=== PATIENT | female | born 1945 | race Caucasian/White ===

== ENCOUNTER 2019-01-02 09:55 | Outpatient (CLI) | payer MEDICARE ==
[2019-01-02 11:29] LABS: #Eosinphils 0.1 thou/uL (0.0-0.7); #Lymphocytes 2.7 thou/uL (1.20-3.40); #Monocytes 0.6 thou/uL (0.11-0.59); #Neutrophils 5.3 thou/uL (1.40-6.50); %Basophils 0.4 % (0.0-1.0); %Eosinophils 1.6 % (0.0-10.0); %Lymphocytes 30.6 % (21.0-51.0); %Monocytes 6.6 % (0.0-10.0); %Neutrophils 60.7 % (42.0-75.0); Hemoglobin 13.8 g/dL (12.0-16.0); Mean Corpuscular HGB CONC 33.1 g/dL (32.0-36.0); Mean Corpuscular Hemoglobin 28.5 pg (27.0-31.0); Mean Corpuscular Volume 86.1 fL (78.0-98.0); Mean Platelet Volume 7.4 fL (7.4-10.4); Platelet Count 251 thou/uL (130-400); RBC Distribution Width 12.8 % (11.5-14.5); Red Blood Cell (RBC) Count 4.86 mill/uL (4.20-5.40); White Blood Cell (WBC) Count 8.7 thou/uL (4.8-10.8)
[2019-01-02 11:34] LABS: ALT (SGPT) 17 U/L (8-55); AST (SGOT) 22 U/L (5-34); Albumin 4.6 g/dL (3.4-4.8); Alkaline Phosphatase 97 U/L (40-150); Anion Gap 11 mmol/L (10-20); BUN (Urea Nitrogen) 13 mg/dL (9.8-20.1); Bilirubin, Total 0.6 mg/dL (0.2-1.2); Calc. Creatinine Clearance 0 mL/min (70-130); Carbon Dioxide 27 mmol/L (23-31); Cardiac Risk 3.1 (Less than 4.5); Chloride 104 mmol/L (98-107); Cholesterol 143 mg/dl (< 200 Desired); Estimated GFR-MDRD 67; Globulin 2.7 g/dL (2.4-3.5); Glucose 100 mg/dL (83-110); HDL Cholesterol 46 mg/dL (>60 Neg Risk); LDL Cholesterol, Calculated 72 mg/dL; Potassium 4.8 mmol/L (3.5-5.1); Protein, Total 7.3 g/dL (6.0-8.3); Sodium 137 mmol/L (136-145); Triglycerides 124 mg/dL (Less than 150)
--- NOTE | 2019-01-02 11:45 | RAD ---
PA AND LATERAL CHEST: 01/02/19 HISTORY: Preop. Heart size is within normal limits. Internal defibrillator device is present. The lungs are clear of infiltrates. Postoperative changes of the cervical spine are noted. IMPRESSION: No active intrathoracic disease. POS: TPC
== END 2019-01-02 09:56 | disposition home or self-care (01) ==
LOC: LABBT 09:55
PROVIDERS: ATTEND Internal Medicine Cardiovascular Disease
DX: Z01.818 Encounter for other preprocedural examination (principal)
CPT/HCPCS: 71046; 80053; 80061; 85025; 93005; 93010

== ENCOUNTER 2019-01-15 04:49 | Inpatient (IN) | payer MEDICARE ==
[2019-01-15 06:04] LABS: #Eosinphils 0.2 thou/uL (0.0-0.7); #Lymphocytes 1.7 thou/uL (1.20-3.40); #Neutrophils 8.6 thou/uL (1.40-6.50); %Basophils 0.4 % (0.0-1.0); %Eosinophils 1.4 % (0.0-10.0); %Lymphocytes 14.9 % (21.0-51.0); %Monocytes 8.5 % (0.0-10.0); %Neutrophils 74.9 % (42.0-75.0); Hemoglobin 10.1 g/dL (12.0-16.0); Mean Corpuscular HGB CONC 33.1 g/dL (32.0-36.0); Mean Corpuscular Hemoglobin 28.3 pg (27.0-31.0); Mean Corpuscular Volume 85.4 fL (78.0-98.0); Mean Platelet Volume 6.7 fL (7.4-10.4); Platelet Count 439 thou/uL (130-400); RBC Distribution Width 13.7 % (11.5-14.5); Red Blood Cell (RBC) Count 3.57 mill/uL (4.20-5.40); White Blood Cell (WBC) Count 11.5 thou/uL (4.8-10.8)
[2019-01-15 06:26] LABS: ALT (SGPT) 15 U/L (8-55); AST (SGOT) 19 U/L (5-34); Albumin 3.5 g/dL (3.4-4.8); Alkaline Phosphatase 78 U/L (40-150); Anion Gap 13 mmol/L (10-20); BUN (Urea Nitrogen) 8 mg/dL (9.8-20.1); Bilirubin, Total 0.6 mg/dL (0.2-1.2); CK (CPK) 20 U/L (29-168); Calc. Creatinine Clearance 0 mL/min (70-130); Calcium 8.9 mg/dL (7.8-10.44); Carbon Dioxide 35 mmol/L (23-31); Chloride 88 mmol/L (98-107); Estimated GFR-MDRD 73; Globulin 1.8 g/dL (2.4-3.5); Glucose 115 mg/dL (83-110); Potassium 3.1 mmol/L (3.5-5.1); Protein, Total 5.3 g/dL (6.0-8.3); Sodium 133 mmol/L (136-145)
[2019-01-15] MEDS ORDERED: Lidocaine 1% (PF) 30 ML VIAL ONE (07:20)
--- NOTE | 2019-01-15 07:36 | CT ---
CTA Angio Chest W WO Con History: Chest pain. Dyspnea. Recent open heart surgery. Comparison: Chest radiograph same day. Chest CT October 2015. Findings: CT angiogram of the chest performed after the intravenous administration of contrast. 3-D r endering provided. No proximal segmental pulmonary arterial filling defect. Following trunk mildly enlarged. Large bilateral pleural effusions. Cardiomegaly. Trace pericardial fluid. Mild reflux contrast within the suprahepatic IVC and hepatic veins. Limited upper abdomen appears unremarkable. Mild atelectasis in the lung bases. No lobar consolidation. Thyroid is unremarkable. No mediastinal adenopathy. Trace retrosternal gas and fluid not unexpected g iven history of recent surgery. No displaced rib fracture. No dehiscence of the sternum. Impression: 1. No proximal segmental pulmonary arterial filling defect. 2. Large bilateral pleural effusions. 3. Evidence of recent median sternotomy without sternal dehiscence or significant retrosternal fluid collection to suggest abscess or mediastinitis.
[2019-01-15] MEDS ORDERED: Furosemide 40 MG/4 ML VIAL ONE (07:39)
[2019-01-15] MEDS ORDERED: Potassium Chloride 20 MEQ TAB ONE (07:39)
[2019-01-15] MEDS ORDERED: Sodium Chloride 0.9% 100 ML ONE (07:40)
[2019-01-15] MEDS ORDERED: Cefepime 2 GM VIAL ONE (07:40)
--- NOTE | 2019-01-15 08:47 | HP ---
PRIMARY CARE PROVIDER: Dr. Gómez in [place]. MACHINE FITTER: Dr. Paul Horta. HISTORY OF PRESENT ILLNESS: Referred to [facility] by [facility] for shortness of breath, CHF exacerbation. The patient recently discharged from the hospital, 01/11/2019 after coronary artery bypass graft. She states since she has been out of the hospital, she has had a poor appetite. She has been nauseated for the past 2 days, dizziness. No emesis. She has had green watery diarrhea up to 3+ times a day. No fever or chills. No anterior chest pain, but she has had shortness of breath, aggravated by lying down flat. PAST MEDICAL HISTORY: Coronary artery bypass graft, January of 2019, Takotsubo cardiomyopathy, left bundle-branch block, hypercholesterolemia, hypothyroidism. MEDICATIONS: 1. Alendronate 35 mg once a week. 2. Coreg 6.25 mg twice a day. 3. Lipitor 20 mg a day. 4. Levothyroxine 75 mcg a day. 5. Lasix 40 mg a day. 6. Losartan 25 mg a day. 7. Potassium chloride 10 mEq a day. 8. Aspirin 325 mg a day. 9. Doxylamine 25 mg daily p.r.n. 10. Atarax 25 mg p.r.n. 11. Melatonin 1 mg at bedtime. 12. Benadryl p.r.n. PAST SURGICAL HISTORY: Breast lumpectomy, cervical fusion, knee arthroscopy, right carpal tunnel release, biventricular ICD implantation, hysterectomy with bilateral oophorectomy. ALLERGIES: COUGH WITH JUJU INHIBITORS. SOCIAL HISTORY: Does not smoke or drink. Full code status. FAMILY HISTORY: Negative for coronary artery disease or myocardial infarction. REVIEW OF SYSTEMS: GENERAL: Some dizziness with present illness. No fainting. No fever or chills. EYES: No double vision, blurred vision, flashing lights. EAR, NOSE AND THROAT: No ear pain or drainage. No nasal bleeding. No trouble swallowing. CARDIAC: See present illness. RESPIRATION: She has had a dry cough, dyspnea on exertion, orthopnea. No wheezing. GASTROINTESTINAL: See present illness. No abdominal pain. No melena. GENITOURINARY: No hematuria, dysuria. MUSCULOSKELETAL: She had scant swelling in her legs. No pain. NEUROLOGICAL: No strokes, seizures, or focal weakness. PSYCHIATRIC: No anxiety, depression. SKIN: She bruises where she has had IVs and blood draws. Otherwise, no bruising or bleeding. HEME/LYMPH: No tender or swollen lymph nodes in the axilla, inguinal, or cervical area. PHYSICAL EXAMINATION: GENERAL: She is alert, cooperative, pleasant lady, in no acute distress. VITAL SIGNS: Her blood pressure 126/60, pulse 73, respirations 18, temperature 98.4, O2 saturation in the 90s on room air. HEAD, EYES, EARS, NOSE, AND THROAT: Reveal pupils are equal, round, and reactive to light. Extraocular movements intact. Sclerae are white. Tympanic membranes clear. Nose clear. Oral mucous membranes are wet. Dental hygiene is good. NECK: Supple without jugular venous distention, adenopathy, or thyromegaly. CHEST: Clear to percussion. Bilateral posterior lower lobe rales. HEART: Regular rate and rhythm. First and second heart sounds clear. Soft systolic murmur. ABDOMEN: Soft. Bowel sounds are normal. There is no hepatosplenomegaly. No mass. No rebound. No bruits. EXTREMITIES: Reveal no cyanosis, clubbing, or edema. PULSES: Carotid, radial, femoral, and dorsalis pedis pulses intact and symmetric. SKIN: Warm and dry without bruises or rash. HEME/LYMPH: No tender or swollen lymph nodes in axilla, inguinal, or cervical area. NEUROLOGICAL: Cranial nerves 2 through 12 are intact. Deep tendon reflexes are symmetric. Moves all extremities. IMAGING STUDIES: EKG; sinus rhythm with paced ventricular rhythm from dual chamber pacemaker, reviewed by me. Chest x-ray; bilateral pleural effusions, pulmonary vascular congestion bilaterally. Median sternotomy changes, reviewed by me. LABORATORY DATA: Comprehensive metabolic profile; sodium low at 133, potassium low at 3.1, chloride low at 88, CO2 high at 35, BUN 8, creatinine 0.77, blood sugar 115. Liver function tests, normal. Troponin 0.020. BNP 828. D-dimer 2.98. CBC; hemoglobin 10.1, white count 11.5, and platelet count 439,000. ADMITTING DIAGNOSES: 1. Acute on chronic congestive heart failure. 2. Coronary artery disease, status post coronary artery bypass graft approximately 10 days ago. 3. History of cardiomyopathy. 4. Diarrhea. 5. Dyslipidemia. 6. Hypothyroidism. PLAN: 1. Will admit to Telemetry. 2. Start Lasix 40 mg IV twice a day. 3. Selected home medicines. 4. Stool for C. difficile. 5. Consult Dr. Miller and Dr. Ma. 6. Further remarks after appropriate consultations. Job ID: [id number]
[2019-01-15 09:25] LABS: Troponin I 0.013 ng/mL (< 0.028)
--- NOTE | 2019-01-15 09:28 | RAD ---
PORTABLE CHEST: Date: 01/15/19 PROVIDED CLINICAL HISTORY: Shortness of breath. COMPARISON: 01/08/19. FINDINGS: Cardiac and mediastinal silhouette and unchanged in appearance. Left subclavian cardiac pacing device and median sternotomy changes are redemonstrated. Bibasilar pleural parenchymal opacities are seen. No evidence for pneumothorax. IMPRESSION: Bibasilar pleural parenchymal opacity. Please correlate with subsequently performed CT examination. POS: OFF
[2019-01-15] MEDS ORDERED: ISOVUE-370 76%-LOCM 1 ML ONE (09:51)
[2019-01-15] MEDS ORDERED: Acetaminophen 325 MG TAB PO PRN (10:13)
[2019-01-15] MEDS ORDERED: Aspirin 325 MG TAB PO SCH (10:13)
[2019-01-15] MEDS ORDERED: Ondansetron ODT 4 MG TAB PO PRN (10:13)
[2019-01-15 10:39] VITALS: BMI 25.2
[2019-01-15 12:29] LABS: Troponin I 0.017 ng/mL (< 0.028)
[2019-01-15] MEDS: Furosemide 40 MG/4 ML VIAL SLOW IVP SCH (15:27)
[2019-01-15] MEDS: Calcium Carbonate 500 MG ChewTAB PO PRN (20:39)
[2019-01-15] MEDS: Zolpidem Tartrate 5 MG TAB PO PRN (20:39)
[2019-01-15] MEDS: Carvedilol 6.25 MG TAB PO SCH (20:40)
[2019-01-15] MEDS: Famotidine 20 MG TAB PO SCH (20:40)
[2019-01-15] MEDS: Atorvastatin Calcium 20 MG TAB PO SCH (20:40)
[2019-01-15] MEDS: Potassium Chloride 10 MEQ TAB PO SCH (20:40)
--- NOTE | 2019-01-16 00:35 | CON ---
DATE OF CONSULTATION: HISTORY OF PRESENT ILLNESS: Keya Eldridge is a 73-year-old white female who I initially evaluated in April 2013. She was having increased chest discomfort and went to the emergency room in [place]. She has chronic bronchitis, was given DuoNebs and IV fluids. Cardiac enzymes were performed and the last troponin was 1.34. She was transferred here for further evaluation. She had a left bundle-branch block on her EKG of uncertain duration. Echocardiogram revealed the study to be technically difficult. There was moderate left ventricular systolic dysfunction with ejection fraction of 30% to 35% with distal anterior, distal septal, distal inferior and apical akinesis consistent with possible Takotsubo cardiomyopathy. She underwent cardiac catheterization. Left ventriculogram revealed akinesis of the distal anterior, distal inferior and apical francisco with ejection fraction of 30% to 35%. There was mild mitral regurgitation. The LAD had multiple lesions of 50 % and 40% proximal, 40% mid, 50% distal and 60% apical. There was 20% proximal circumflex stenosis and the right coronary artery had distal 30% stenosis. She was placed on carvedilol, JUJU inhibitor, Lasix, and statin and was discharged on 04/14/2013. She was seen for followup 3 months later in July 2013. She had only been taking Lasix once a week and she was told that she did take it every day. She also had worsening cough, which probably was related to not taking her Lasix. Repeat echo showed continued ejection fraction of 30% to 35%. She underwent placement of a biventricular ICD on 08/03/2013. Echo performed in September 2013 revealed that the ejection fraction was 35% to 40%. She also had been complaining of cough, lisinopril 2.5 mg was held for 1 month; however, she continued to have the cough and at that time, it was felt to probably be due to heart failure. Cough continued and again lisinopril was discontinued. She was placed on losartan and the cough seemed to improve and so, JUJU inhibitors have been avoided since that time. In July 2016, echo revealed her ejection fraction had improved to 50% to 55% . She was seen on 11/24/2018, complaining of left arm cramping with associated nausea, numbness, and palpitations. She did feel like a blood pressure cuff on her left arm. She also complained of chest tightness with exertion. Repeat echo revealed ejection fraction of 45% to 50%. She underwent cardiac PET scan which revealed severe ischemia of the mid to distal, anterior apical, and proximal to distal septal wall. It was recommended she undergo cardiac catheterization. This revealed an 80% proximal LAD stenosis (at the left main), 40% proximal LAD, 30% mid RCA. Left ventriculogram revealed mild distal anterior hypokinesis with ejection fraction of 50% to 55%. She underwent CABG x1 later that day with TREVIZO to the LAD. She was somewhat hypotensive requiring pressors after surgery and was gradually resumed on her usual medications. She was discharged on 01/11/19 . She now returns today complaining of increased shortness of breath over the last several days. She denies any chest discomfort. Just increased shortness of breath and weight gain. Chest x-ray revealed bilateral pleural effusions. She is admitted for further treatment. PAST MEDICAL HISTORY: One vessel coronary artery disease, Takotsubo cardiomyopathy, chronic bronchitis, left bundle-branch block, hypercholesterolemia with last LDL of 72, hypothyroidism. PAST SURGICAL HISTORY: Breast lumpectomy, cervical fusion, knee arthroscopy, right carpal tunnel release, biventricular ICD implantation, total abdominal hysterectomy. MEDICATIONS: 1. Furosemide 40 q.a.m. 2. Levothyroxine 75 mcg daily. 3. Losartan 50 daily. 4. Atorvastatin 20 mg daily. 5. Aspirin 81 daily. 6. Carvedilol 6.25 b.i.d. 7. Nitroglycerin p.r.n. 8. KCl 10 mEq daily. ALLERGIES: COUGH WITH JUJU INHIBITOR. SOCIAL HISTORY: She does not smoke or drink. She lived in [place] for many years, and moved to [place] in 2012. FAMILY HISTORY: Negative for coronary artery disease, myocardial infarction, or CABG. REVIEW OF SYSTEMS: 12-point review of systems unremarkable. PHYSICAL EXAMINATION: VITAL SIGNS: Blood pressure 142/69, pulse 78. HEENT: PERRL. NECK: Supple. CHEST: Reveals decreased breath sounds at both bases. CARDIOVASCULAR: S1 and S2 normal without any S3, S4, or murmurs. ABDOMEN: Normal bowel sounds without any tenderness or organomegaly. EXTREMITIES: Reveal no clubbing or cyanosis. There is 1+ pretibial edema. NEUROLOGICAL: Grossly intact. SKIN: Warm and dry. LABORATORY DATA: EKG revealed ventricular pacing. Chest x-ray reveals cardiomegaly with bilateral pleural effusions, increased pulmonary vascularity. Chest CTA revealed no evidence of pulmonary embolism. There are bilateral pleural effusions. Hemoglobin 10.1, hematocrit 30.5, white count 11,500, platelets 439,000. D- dimer 2.98. Sodium 133, potassium 3.4, chloride 88, carbon dioxide 35, BUN 8, creatinine 0.77. BNP 827.6. Troponin I is normal x3. IMPRESSION: 1. Bilateral pleural effusions, volume overload, post CABG. 2. Status post CABG x1 with TREVIZO to LAD. 3. History of Takotsubo cardiomyopathy in 2012. 4. Left bundle branch block. 5. Status post biventricular ICD placement with improvement in her left ventricular function over time. 6. Hypercholesterolemia. 7. Moderate mitral regurgitation. 8. Hypothyroidism. 9. Cough with JUJU inhibitors. PLAN: The patient will continue to be diuresed. Echocardiogram be performed to reassess left ventricular function. [employer] will be performed to interrogate her ICD. Job ID: [id number] MTDD
[2019-01-16 05:00] LABS: Anion Gap 13 mmol/L (10-20); BUN (Urea Nitrogen) 7 mg/dL (9.8-20.1); Calc. Creatinine Clearance 71 mL/min (70-130); Calcium 8.9 mg/dL (7.8-10.44); Carbon Dioxide 31 mmol/L (23-31); Chloride 92 mmol/L (98-107); Estimated GFR-MDRD 71; Glucose 109 mg/dL (83-110); Potassium 3.4 mmol/L (3.5-5.1); Sodium 133 mmol/L (136-145)
[2019-01-16] MEDS: Furosemide 40 MG/4 ML VIAL SLOW IVP SCH ×2 (05:26→13:38)
[2019-01-16] MEDS: Levothyroxine Sodium 75 MCG TAB PO SCH (05:27)
[2019-01-16] MEDS ORDERED: Diabetic Tussin 200 MG/10 ML UDCUP PO PRN (07:49)
[2019-01-16] MEDS ORDERED: Loperamide HCl 2 MG CAP PO PRN (07:49)
[2019-01-16] MEDS ORDERED: Artificial Tears 18 DROP/0.9 ML EA EYE PRN (07:49)
[2019-01-16] MEDS ORDERED: Ondansetron PF 4 MG/2 ML Vial IVP PRN (07:49)
[2019-01-16] MEDS ORDERED: Sodium Chloride 0.65% Nasal 44 ML BOT EA NARE PRN (07:49)
[2019-01-16] MEDS ORDERED: hydrALAZINE 20 MG/ML VIAL SLOW IVP PRN (07:49)
[2019-01-16] MEDS ORDERED: Cepastat Lozenges 1 LOZ PO PRN (07:49)
[2019-01-16] MEDS ORDERED: Loratadine 10 MG TAB PO PRN (07:49)
[2019-01-16] MEDS ORDERED: Senokot S 8.6-50 MG TAB PO PRN (07:49)
[2019-01-16] MEDS ORDERED: Potassium Chloride 20 MEQ TAB PO SCH (08:00)
[2019-01-16] MEDS: Enoxaparin Sodium 40 MG/0.4 ML SYRINGE SC SCH (08:44)
[2019-01-16] MEDS: Carvedilol 6.25 MG TAB PO SCH ×2 (08:44→20:31)
[2019-01-16] MEDS: Aspirin 325 mg Enteric Coated Tablet PO SCH (08:44)
[2019-01-16] MEDS: Famotidine 20 MG TAB PO SCH ×2 (08:45→20:31)
[2019-01-16 08:47] LABS: Magnesium 1.9 mg/dL (1.6-2.6); Uric Acid 5.6 mg/dL (2.6-6.0)
--- NOTE | 2019-01-16 11:19 | PDOC.PN ---
- Subjective Encounter Start Date: 01/16/19 Encounter Start Time: 08:45 -: old records requested/rev Patient seen and examined. No new complaints. No overnight events pt feels much better, less dyspnea, no diarrhoea today - Objective Resuscitation Status - Order Detail: 01/15/19 08:03 Resuscitation Status Routine Resuscitation Status: FULL: Full Resuscitation MAR Reviewed: Yes Vital Signs & Weight: Vital Signs (12 hours) Temp Pulse Resp BP Pulse Ox 01/16/19 10:18 97.8 F 01/16/19 08:44 117/58 L 01/16/19 08:02 97 01/16/19 07:24 97.8 F 01/16/19 04:17 96 01/16/19 03:10 98.6 F 01/16/19 00:00 79 17 Weight Weight 155 lb 1 oz Most Recent Monitor Data Heart Rate from ECG 86 NIBP 123/90 NIBP BP-Mean 101 Respiration from ECG 19 SpO2 98 I&O: 01/15/19 01/16/19 01/17/19 06:59 06:59 06:59 Intake Total 1814 Output Total 2900 Balance -1086 Result Diagrams: 01/15/19 05:53 01/16/19 04:27 Radiology Reviewed by me: Yes EKG Reviewed by me: Yes Phys Exam - Physical Examination Constitutional: NAD HEENT: PERRLA, moist MMs, sclera anicteric Neck: no JVD, supple Respiratory: no wheezing, no rhonchi few basal rales and reduced air entry at base Cardiovascular: RRR, no significant murmur, no rub surgical site clean Gastrointestinal: soft, non-tender, no distention, positive bowel sounds Musculoskeletal: no edema, pulses present Neurological: non-focal, normal sensation, moves all 4 limbs Lymphatic: no nodes Psychiatric: normal affect, A&O x 3 Skin: no rash, normal turgor Dx/Plan (1) Acute on chronic systolic ACC/AHA stage C congestive heart failure Code(s): I50.23 - ACUTE ON CHRONIC SYSTOLIC (CONGESTIVE) HEART FAILURE Status : Acute (2) Bilateral pleural effusion Code(s): J90 - PLEURAL EFFUSION, NOT ELSEWHERE CLASSIFIED Status: Acute Comment: due to CHF (3) History of coronary artery bypass graft x 1 Code(s): Z95.1 - PRESENCE OF AORTOCORONARY BYPASS GRAFT Status: Acute Comment: on 01/14/2019 (4) Hypokalemia Code(s): E87.6 - HYPOKALEMIA Status: Acute (5) Hyponatremia Code(s): E87.1 - HYPO-OSMOLALITY AND HYPONATREMIA Status: Acute (6) Anemia, normocytic normochromic Code(s): D64.9 - ANEMIA, UNSPECIFIED Status: Chronic (7) CAD (coronary artery disease) Code(s): I25.10 - ATHSCL HEART DISEASE OF [place] CORONARY ARTERY W/O ANG PCTRS Status: Chronic (8) Dyslipidemia Code(s): E78.5 - HYPERLIPIDEMIA, UNSPECIFIED Status: Chronic (9) Hypertension Code(s): I10 - ESSENTIAL (PRIMARY) HYPERTENSION Status: Chronic (10) Hypothyroidism Code(s): E03.9 - HYPOTHYROIDISM, UNSPECIFIED Status: Chronic (11) Osteoporosis Code(s): M81.0 - AGE-RELATED OSTEOPOROSIS W/O CURRENT PATHOLOGICAL FRACTURE Status: Chronic - Plan cont current plan of care * replace potassium * continue IV lasix * transfer to tele * medication reviewed as below * symptomatic treatment. * echo pending * mag, uric acid, TSH checked Review of Systems - Review of Systems Eyes: negative: Pain, Vision Change, Conjunctivae Inflammation, Eyelid Inflammation, Redness, Other ENT: negative: Ear Pain, Ear Discharge, Nose Pain, Nose Discharge, Nose Congestion, Mouth Pain, Mouth Swelling, Throat Pain, Throat Swelling, Other Respiratory: negative: Cough, Dry, Shortness of Breath, Hemoptysis, SOB with Excertion, Pleuritic Pain, Sputum, Wheezing Cardiovascular: negative: chest pain, palpitations, orthopnea, paroxysmal nocturnal dyspnea, edema, light headedness, other Gastrointestinal: negative: Nausea, Vomiting, Abdominal Pain, Diarrhea, Constipation, Melena, Hematochezia, Other Genitourinary: negative: Dysuria, Frequency, Incontinence, Hematuria, Retention , Other Musculoskeletal: negative: Neck Pain, Shoulder Pain, Arm Pain, Back Pain, Hand Pain, Leg Pain, Foot Pain, Other Skin: negative: Rash, Lesions, Emanuel, Bruising, Other - Medications/Allergies Allergies/Adverse Reactions: Allergies Allergy/AdvReac Type Severity Reaction Status Date / Time No Known Drug Allergies Allergy Verified 01/15/19 10:26 Medications: Current Medications Acetaminophen (Tylenol) 650 mg PO Q4H PRN PRN Reason: Headache/Fever/Mild Pain (1-3) Artificial Tears (Tears Naturale) 2 drop EA EYE PRN PRN PRN Reason: Dry Eyes Aspirin (Ecotrin) 325 mg PO DAILY [facility] Last Admin: 01/16/19 08:44 Dose: 325 mg Atorvastatin Calcium (Lipitor) 20 mg PO HS [facility] Last Admin: 01/15/19 20:40 Dose: 20 mg Calcium Carbonate (Tums) 1,000 mg PO Q3H PRN PRN Reason: Heartburn or Indigestion Last Admin: 01/15/19 20:39 Dose: 1,000 mg Carvedilol (Coreg) 6.25 mg PO BID [facility] Last Admin: 01/16/19 08:44 Dose: 6.25 mg Enoxaparin Sodium (Lovenox) 40 mg SC 0900 [facility] Last Admin: 01/16/19 08:44 Dose: 40 mg Famotidine (Pepcid) 20 mg PO BID [facility] Last Admin: 01/16/19 08:45 Dose: 20 mg Furosemide (Lasix) 40 mg SLOW IVP 0600,1400 [facility] Last Admin: 01/16/19 05:26 Dose: 40 mg Guaifenesin (Robitussin Sf) 200 mg PO Q4H PRN PRN Reason: Cough Hydralazine HCl (Apresoline) 10 mg SLOW IVP Q4H PRN PRN Reason: SBP > 180 and HR < 70 Levothyroxine Sodium (Synthroid) 75 mcg PO 0600 [facility] Last Admin: 01/16/19 05:27 Dose: 75 mcg Loperamide HCl (Imodium) 2 mg PO PRN PRN PRN Reason: Diarrhea/Loose Stools Loratadine (Claritin) 10 mg PO DAILYPRN PRN PRN Reason: Sinus Symptoms Ondansetron HCl (Zofran Odt) 4 mg PO Q6H PRN PRN Reason: Nausea/Vomiting Ondansetron HCl (Zofran) 4 mg IVP Q6H PRN PRN Reason: Nausea/Vomiting Potassium Chloride (Klor-Con 10) 10 meq PO QPM [facility] Last Admin: 01/15/19 20:40 Dose: 10 meq Senna/Docusate Sodium (Senokot S) 2 tab PO BID PRN PRN Reason: Constipation Sodium Chloride ([place] Nasal [place] 0.65%) 0 ml EA NARE QIDPRN PRN PRN Reason: Nasal Congestion Throat Lozenges (Cepastat Lozenges) 1 mic PO Q2H PRN PRN Reason: Sore Throat Zolpidem Tartrate (Ambien) 5 mg PO HSPRN PRN PRN Reason: Insomnia Last Admin: 01/15/19 20:39 Dose: 5 mg
[2019-01-16 11:41] LABS: Bilirubin Negative (Negative); Blood, Urine Negative (Negative); Clarity CLEAR (Clear); Glucose, Urine (Dipstick) Negative (Negative); Leukocyte Negative (Negative); Nitrite Negative (Negative); Protein, Urine (Dipstick) Negative (Neg-Trace); Specific Gravity, Urine 1.005 (1.002-1.036); Urobilinogen 0.2 mg/dL (0.2-1.0); pH, Urine 7.5 (5.0-9.0)
[2019-01-16] MEDS: Calcium Carbonate 500 MG ChewTAB PO PRN (20:30)
[2019-01-16] MEDS: Potassium Chloride 10 MEQ TAB PO SCH (20:31)
[2019-01-16] MEDS: Zolpidem Tartrate 5 MG TAB PO PRN (20:31)
[2019-01-16] MEDS: Atorvastatin Calcium 20 MG TAB PO SCH (20:31)
[2019-01-17 04:53] LABS: #Basophils 0.1 thou/uL (0.0-0.2); #Eosinphils 0.4 thou/uL (0.0-0.7); #Lymphocytes 2.9 thou/uL (1.20-3.40); #Neutrophils 7.4 thou/uL (1.40-6.50); %Basophils 0.8 % (0.0-1.0); %Eosinophils 3.1 % (0.0-10.0); %Lymphocytes 24.9 % (21.0-51.0); %Monocytes 8.4 % (0.0-10.0); %Neutrophils 62.9 % (42.0-75.0); Hemoglobin 10.6 g/dL (12.0-16.0); Mean Corpuscular HGB CONC 31.3 g/dL (32.0-36.0); Mean Corpuscular Hemoglobin 27.2 pg (27.0-31.0); Mean Corpuscular Volume 86.6 fL (78.0-98.0); Mean Platelet Volume 6.9 fL (7.4-10.4); Platelet Count 541 thou/uL (130-400); RBC Distribution Width 13.8 % (11.5-14.5); White Blood Cell (WBC) Count 11.7 thou/uL (4.8-10.8)
[2019-01-17 05:12] LABS: Anion Gap 12 mmol/L (10-20); BUN (Urea Nitrogen) 6 mg/dL (9.8-20.1); Calc. Creatinine Clearance 68 mL/min (70-130); Calcium 9.1 mg/dL (7.8-10.44); Carbon Dioxide 32 mmol/L (23-31); Chloride 92 mmol/L (98-107); Estimated GFR-MDRD 68; Glucose 114 mg/dL (83-110); Potassium 3.2 mmol/L (3.5-5.1); Sodium 133 mmol/L (136-145)
[2019-01-17] MEDS: Furosemide 40 MG/4 ML VIAL SLOW IVP SCH (06:18)
[2019-01-17] MEDS: Levothyroxine Sodium 75 MCG TAB PO SCH (06:18)
[2019-01-17] MEDS: Potassium Chloride 20 MEQ TAB PO SCH ×3 (08:33→17:13)
[2019-01-17] MEDS: Famotidine 20 MG TAB PO SCH ×2 (08:33→20:46)
[2019-01-17] MEDS: Carvedilol 6.25 MG TAB PO SCH ×2 (08:33→20:45)
[2019-01-17] MEDS: Aspirin 325 mg Enteric Coated Tablet PO SCH (08:34)
[2019-01-17] MEDS: Enoxaparin Sodium 40 MG/0.4 ML SYRINGE SC SCH (08:35)
--- NOTE | 2019-01-17 11:52 | RAD ---
CHEST TWO VIEWS: HISTORY: Pleural effusion. TECHNIQUE: Two views chest obtained. FINDINGS: Sternotomy wires seen. There is a dual-lead intracardiac defibrillator. Small bilateral pleural eff usions noted. No evidence of effusions, pneumonia, or pneumothorax seen. IMPRESSION: Small bilateral pleural effusions. Transcribed Date/Time: 01/17/2019 12:01 PM
[2019-01-17] MEDS: Furosemide 20 MG TAB PO SCH (13:03)
--- NOTE | 2019-01-17 19:36 | PRG ---
DATE OF SERVICE: 01/17/2019 SUBJECTIVE: Shortness of breath has significantly improved. She is currently on room air. She denies any chest pain or palpitations. No syncope or focal neurologic deficit reported. REVIEW OF SYSTEMS: All other review of systems were reviewed and were found negative. CURRENT MEDICATIONS: Reviewed. TELEMETRY MONITORING: By my review showed paced rhythm. PHYSICAL EXAMINATION: VITAL SIGNS: Temperature 98.7, pulse rate of 83, blood pressure 135/84, with O2 saturation of 97% on room air. GENERAL: A 73-year-old female, in no apparent distress. LUNGS: Showed diminished air entry at bilateral bases. No rhonchi or rales. HEART: S1 and S2 present. Regular rate and rhythm. Well-healing midline sternal incision noted. ABDOMEN: Soft, nontender. Bowel sounds present. EXTREMITIES: No edema or calf tenderness. IMAGING DATA: Echocardiogram showed ejection fraction 50% to 55% with diastolic dysfunction. Chest x-ray from today by my review showed small bilateral pleural effusion. IMPRESSION: 1. Acute on chronic diastolic heart failure exacerbation, improving. 2. Coronary artery disease, status post recent coronary artery bypass graft. 3. History of systolic heart failure in the past, status post automatic implantable cardioverter-defibrillator. 4. Hypothyroidism. 5. Dyslipidemia. 6. JUJU-inhibitor induced cough. 7. History of takotsubo cardiomyopathy in 2012. 8. Chronic left bundle-branch block. 9. History of moderate mitral regurgitation. PLAN: Lasix will be continued at 40 mg b.i.d. We will continue aspirin, Lipitor, carvedilol, as well as Lovenox for DVT prophylaxis. We will recheck labs in a.m. Repeat chest x-ray showed significant improvement. The patient was extensively counseled on fluid restriction. We will continue cardiac rehab. DISPOSITION: Probably in a.m. once cleared by consultants. Job ID: [id number]
[2019-01-17] MEDS: Zolpidem Tartrate 5 MG TAB PO PRN (20:45)
[2019-01-17] MEDS: Atorvastatin Calcium 20 MG TAB PO SCH (20:46)
[2019-01-18] MEDS: Levothyroxine Sodium 75 MCG TAB PO SCH (04:23)
[2019-01-18 04:55] LABS: Anion Gap 13 mmol/L (10-20); BUN (Urea Nitrogen) 6 mg/dL (9.8-20.1); Calc. Creatinine Clearance 68 mL/min (70-130); Calcium 9.2 mg/dL (7.8-10.44); Carbon Dioxide 28 mmol/L (23-31); Chloride 95 mmol/L (98-107); Estimated GFR-MDRD 68; Glucose 111 mg/dL (83-110); Magnesium 1.8 mg/dL (1.6-2.6); Potassium 3.6 mmol/L (3.5-5.1); Sodium 132 mmol/L (136-145)
[2019-01-18 07:14] VITALS: TEMP 97.7
[2019-01-18] MEDS: Furosemide 20 MG TAB PO SCH (08:49)
[2019-01-18] MEDS: Carvedilol 6.25 MG TAB PO SCH (08:49)
[2019-01-18] MEDS: Aspirin 325 mg Enteric Coated Tablet PO SCH (08:49)
[2019-01-18] MEDS: Potassium Chloride 20 MEQ TAB PO SCH (08:50)
[2019-01-18] MEDS: Famotidine 20 MG TAB PO SCH (08:50)
[2019-01-18 08:54] VITALS: BP 127/62
--- NOTE | 2019-01-18 11:05 | DIS ---
DATE OF ADMISSION: 01/15/2019 DATE OF DISCHARGE: 01/18/2019 DISCHARGE DISPOSITION: Home. FOLLOWUP: 1. Follow up with primary care physician, Dr. Idris Gómez in 1 week. 2. Follow up with Dr. Solomon Ma in 1 to 2 weeks. 3. Follow up with Cardiology, Dr. Miller next month. 4. Basic metabolic profile after 1 week is recommended. Primary care physician advised to follow. DISCHARGE MEDICATION: Lasix has been increased to 40 mg b.i.d. All other home medications were left unchanged. BRIEF HOSPITAL COURSE: The patient is a 73-year-old female with recent coronary artery bypass grafting, presented to the hospital with shortness of breath. A workup was consistent with volume overload that improved with IV diuretics. The patient is currently on room air. Lasix dose has been increased to 40 mg twice a day. A basic metabolic profile after 1 week is recommended. Primary care physician advised to follow. Her potassium on the day of discharge is 3.6. She has been cleared by Dr. Ma and Dr. Miller for discharge. FINAL DIAGNOSES: 1. Acute on chronic diastolic heart failure exacerbation. 2. Coronary artery disease, status post recent coronary artery bypass graft. 3. History of systolic heart failure in the past, status post automatic implantable cardioverter-defibrillator. 4. Hypothyroidism. 5. Dyslipidemia. 6. History of takotsubo cardiomyopathy in 2012. 7. Chronic left bundle-branch block. 8. History of moderate mitral regurgitation. 9. JUJU inhibitor induced cough. 10. Chronic kidney disease, stage 2. 11. Hypokalemia replaced. 12. Hyponatremia. 13. Chronic anemia. DIAGNOSTIC TESTS: 1. Echocardiogram this admission showed ejection fraction 50% to 55% with diastolic dysfunction. There was mild mitral regurgitation and mild tricuspid regurgitation. 2. CT angiogram of the chest was negative for pulmonary embolism. It showed large bilateral pleural effusion. Repeat chest x-ray yesterday showed small bilateral pleural effusions. TIME SPENT: Total time coordinating the discharge of this patient was 34 minutes. Job ID: [id number]
== END 2019-01-18 10:38 | disposition home or self-care (01) | DRG 291 ==
LOC: ERS 04:49 → ERHOLD 07:43 → IMCU/EMU 08:07
PROVIDERS: ADMIT Internal Medicine; ATTEND Internal Medicine
DX: I13.0 Hypertensive heart and chronic kidney disease with heart failure and stage 1 through stage 4 chronic kidney disease, or unspecified chronic kidney disease (principal); I50.23 Acute on chronic systolic (congestive) heart failure; E87.1 Hypo-osmolality and hyponatremia; E78.00 Pure hypercholesterolemia, unspecified; E03.9 Hypothyroidism, unspecified; I25.10 Atherosclerotic heart disease of native coronary artery without angina pectoris; I44.7 Left bundle-branch block, unspecified; J42 Unspecified chronic bronchitis; I34.0 Nonrheumatic mitral (valve) insufficiency; E87.6 Hypokalemia; M81.0 Age-related osteoporosis without current pathological fracture; N18.2 Chronic kidney disease, stage 2 (mild); D63.1 Anemia in chronic kidney disease; Z98.1 Arthrodesis status; Z79.82 Long term (current) use of aspirin; Z79.899 Other long term (current) drug therapy; Z95.1 Presence of aortocoronary bypass graft; Z88.8 Allergy status to other drugs, medicaments and biological substances; Z95.810 Presence of automatic (implantable) cardiac defibrillator
CPT/HCPCS: 36415; 71045; 71046; 71275; 80048; 80053; 81003; 82550; 83605; 83735; 83880; 84443; 84484; 84550; 85025; 85379; 87040; 93005; 93306; 96365; 96375; J0692; J1650; J1940; J2001; J3370; J3490; Q9966

== ENCOUNTER 2024-06-18 17:57 | Inpatient (IN) | payer MEDICARE, OTHER ==
[2024-06-18] MEDS ORDERED: fentaNYL 50 mcg/mL 1 mL Vial ONE (18:39)
[2024-06-18 19:39] LABS: #Basophils 0.07 10x3/uL (0.0-0.2); %Basophils 0.5 % (0.0-1.0); %Eosinophils 1.7 % (0.0-10.0); %Lymphocytes 11.9 % (21.0-51.0); %Monocytes 5.3 % (0.0-10.0); %Neutrophils 80.3 % (42.0-75.0); Hematocrit 37.8 % (36.0-47.0); Hemoglobin 12.2 g/dL (12.0-16.0); Mean Corpuscular HGB CONC 32.3 g/dL (32.0-36.0); Mean Corpuscular Hemoglobin 27.8 pg (27.0-31.0); Mean Corpuscular Volume 86.1 fL (78.0-98.0); Mean Platelet Volume 9.1 fL (7.4-10.4); Platelet Count 273 10x3/uL (130-400); RBC Distribution Width 13.4 % (11.5-14.5); Red Blood Cell (RBC) Count 4.39 mill/uL (4.20-5.40)
[2024-06-18 20:00] LABS: PTT 27.2 sec (22.9-36.1)
[2024-06-18 20:15] LABS: ALT (SGPT) 15 U/L (8-55); AST (SGOT) 23 U/L (5-34); Albumin 3.7 g/dL (3.4-4.8); Alkaline Phosphatase 99 U/L (40-110); Anion Gap 14 mmol/L (10-20); BUN (Urea Nitrogen) 13 mg/dL (9.8-20.1); Bilirubin, Total 0.5 mg/dL (0.2-1.2); Calc. Creatinine Clearance 0 mL/min (70-130); Calcium 8.5 mg/dL (7.8-10.44); Carbon Dioxide 23 mmol/L (23-31); Chloride 101 mmol/L (98-107); Estimated GFR 70; Globulin 3.1 g/dL (2.4-3.5); Glucose 147 mg/dL (83-110); Potassium 3.8 mmol/L (3.5-5.1); Protein, Total 6.8 g/dL (5.8-8.1); Sodium 134 mmol/L (136-145)
[2024-06-18 20:21] LABS: INR-International Normal Ratio 1.1; Prothrombin Time 14.1 sec (12.0-14.7)
[2024-06-18] MEDS ORDERED: Morphine 4 MG/ML VIAL ONE (20:30)
[2024-06-18] MEDS ORDERED: Dextrose 50% Abboject 50 ML SYRINGE SLOW IVP PRN (20:38)
[2024-06-18] MEDS ORDERED: Dextrose 5% in Water 1,000 ML IV PRN (20:38)
[2024-06-18] MEDS ORDERED: Ondansetron ODT 4 MG TAB PO PRN (20:38)
[2024-06-18] MEDS ORDERED: Glucagon 1 MG/ML KIT IM PRN (20:38)
[2024-06-18] MEDS: Famotidine 20 MG TAB PO SCH (21:21)
[2024-06-18] MEDS: Ondansetron PF 4 MG/2 ML Vial IVP PRN (21:21)
[2024-06-18 21:24] LABS: Bacteria/HPF None Seen HPF (None Seen); Bilirubin Negative (Negative); Blood, Urine Negative (Negative); CAUTI Indications for Culture Acute Hematuria; Clarity Clear (Clear); Glucose, Urine (Dipstick) Normal (Negative); Ketone, Urine Negative (Negative); Leukocyte Negative Leu/uL (Negative); Nitrite Negative (Negative); Protein, Urine (Dipstick) Negative (Neg-Trace); RBC/HPF 0-3 HPF (0-3); Specific Gravity, Urine 1.002 (1.002-1.036); Squamous Epithelial None Seen HPF (0-3); Urobilinogen Normal mg/dL (Less than 2); WBC/HPF None Seen HPF (0-3)
[2024-06-18 21:29] LABS: Urine Culture Reflex No No
[2024-06-18 22:02] VITALS: BMI 20.9
[2024-06-18] MEDS: traMADol HCl 50 MG TAB PO PRN (23:36)
[2024-06-18] MEDS: Acetaminophen 325 MG TAB PO PRN (23:37)
[2024-06-19 05:10] LABS: #Basophils 0.04 10x3/uL (0.0-0.2); #Eosinophils Less than 0.03 10x3/uL (0.0-0.7); %Basophils 0.4 % (0.0-1.0); %Eosinophils 0.2 % (0.0-10.0); %Lymphocytes 17.4 % (21.0-51.0); %Monocytes 7.7 % (0.0-10.0); %Neutrophils 73.9 % (42.0-75.0); Hematocrit 36.2 % (36.0-47.0); Hemoglobin 11.8 g/dL (12.0-16.0); Mean Corpuscular HGB CONC 32.6 g/dL (32.0-36.0); Mean Corpuscular Hemoglobin 27.8 pg (27.0-31.0); Mean Corpuscular Volume 85.4 fL (78.0-98.0); Mean Platelet Volume 9.2 fL (7.4-10.4); Platelet Count 255 10x3/uL (130-400); RBC Distribution Width 13.6 % (11.5-14.5); Red Blood Cell (RBC) Count 4.24 mill/uL (4.20-5.40)
[2024-06-19 05:26] LABS: Anion Gap 14 mmol/L (10-20); BUN (Urea Nitrogen) 16 mg/dL (9.8-20.1); Calc. Creatinine Clearance 47 mL/min (70-130); Calcium 8.5 mg/dL (7.8-10.44); Carbon Dioxide 24 mmol/L (23-31); Chloride 100 mmol/L (98-107); Estimated GFR 64; Glucose 129 mg/dL (83-110); Potassium 4.7 mmol/L (3.5-5.1); Sodium 133 mmol/L (136-145)
[2024-06-19] MEDS ORDERED: CEFAZOLIN 2 GM in Sodium Chloride 0.9% 100 ML IVPB SCH (07:00)
[2024-06-19] MEDS: Methocarbamol 500 MG TAB PO PRN (09:52)
[2024-06-19] MEDS ORDERED: Lidocaine 1% PF 5 ML VIAL ONE (13:52)
[2024-06-19] MEDS ORDERED: PROPOFOL 20 ML ONE (13:52)
[2024-06-19] MEDS ORDERED: fentaNYL 50 mcg/mL 1 mL Vial ONE ×4 (13:52→15:33)
[2024-06-19] MEDS ORDERED: Ondansetron PF 4 MG/2 ML Vial ONE (13:52)
[2024-06-19] MEDS ORDERED: Rocuronium Bromide 10 MG/ML (10ML VIAL) ONE (13:52)
[2024-06-19] MEDS ORDERED: CEFAZOLIN 2 GM VIAL ONE (14:00)
[2024-06-19] MEDS ORDERED: Dexamethasone 20 MG/5 ML VIAL ONE (14:33)
[2024-06-19] MEDS ORDERED: PHENYLEPHRINE-NS 100 MCG/ML 10 ML SYRINGE ONE (14:34)
[2024-06-19] MEDS ORDERED: SUGAMMADEX SODIUM 200 MG/2 ML VIAL ONE (15:00)
[2024-06-20] MEDS: Enoxaparin 40 MG (0.4 mL) SYRINGE SC SCH (09:22)
[2024-06-20] MEDS: Famotidine 20 MG TAB PO SCH (20:06)
[2024-06-21] MEDS: Carvedilol 6.25 MG TAB PO SCH (20:29)
[2024-06-21] MEDS: Atorvastatin Calcium 20 MG TAB PO SCH (20:29)
[2024-06-21] MEDS ORDERED: Potassium Chloride 10 MEQ TAB PO SCH (21:00)
[2024-06-22 05:40] LABS: #Basophils 0.05 10x3/uL (0.0-0.2); %Basophils 0.5 % (0.0-1.0); %Eosinophils 1.7 % (0.0-10.0); %Lymphocytes 23.2 % (21.0-51.0); %Monocytes 12.8 % (0.0-10.0); %Neutrophils 61.5 % (42.0-75.0); Hematocrit 25.8 % (36.0-47.0); Hemoglobin 8.6 g/dL (12.0-16.0); Mean Corpuscular HGB CONC 33.3 g/dL (32.0-36.0); Mean Platelet Volume 9.6 fL (7.4-10.4); Platelet Count 242 10x3/uL (130-400); RBC Distribution Width 13.5 % (11.5-14.5); Red Blood Cell (RBC) Count 3.07 mill/uL (4.20-5.40)
[2024-06-22 05:58] LABS: Anion Gap 11 mmol/L (10-20); BUN (Urea Nitrogen) 15 mg/dL (9.8-20.1); Calc. Creatinine Clearance 62 mL/min (70-130); Calcium 8.7 mg/dL (7.8-10.44); Carbon Dioxide 27 mmol/L (23-31); Chloride 98 mmol/L (98-107); Estimated GFR 88; Glucose 98 mg/dL (83-110); Potassium 4.5 mmol/L (3.5-5.1); Sodium 131 mmol/L (136-145)
[2024-06-22] MEDS: Levothyroxine Sodium 75 MCG TAB PO SCH (06:35)
[2024-06-22] MEDS: Losartan 25 MG TAB PO SCH (09:25)
[2024-06-22] MEDS: Famotidine 20 MG TAB PO SCH (09:25)
[2024-06-22] MEDS: Lactated Ringer's 500 ML IV SCH (16:33)
[2024-06-23] MEDS: hydrOXYzine 10 MG TAB PO PRN (00:23)
[2024-06-23 10:20] VITALS: BMI 20.9
[2024-06-25 11:44] LABS: Bilirubin Negative (Negative); Blood, Urine Negative (Negative); CAUTI Indications for Culture Dysuria,urgency,freq; Clarity Turbid (Clear); Glucose, Urine (Dipstick) Normal (Negative); Ketone, Urine Negative (Negative); Leukocyte 75 Leu/uL (Negative); Nitrite Negative (Negative); Protein, Urine (Dipstick) Negative (Neg-Trace); RBC/HPF 0-3 HPF (0-3); Specific Gravity, Urine 1.003 (1.002-1.036); Squamous Epithelial 0-3 HPF (0-3); Urobilinogen Normal mg/dL (Less than 2)
[2024-06-25 11:47] LABS: Bacteria/HPF 1+ HPF (None Seen)
[2024-06-25 11:48] LABS: Urine Culture Reflex No No
[2024-06-25 16:07] VITALS: BP 138/72; TEMP 98.1
== END 2024-06-25 16:08 | DRG 482 ==
LOC: ERS 17:57 → SURG A 20:09
PROVIDERS: ADMIT Surgery; ATTEND Surgery
PROC: 0QS704Z Reposition Left Upper Femur with Internal Fixation Device, Open Approach (ICD-10-PCS; principal; 2024-06-19)
DX: S72.142A Displaced intertrochanteric fracture of left femur, initial encounter for closed fracture (principal); W18.30XA Fall on same level, unspecified, initial encounter; E03.9 Hypothyroidism, unspecified; I25.10 Atherosclerotic heart disease of native coronary artery without angina pectoris; E11.9 Type 2 diabetes mellitus without complications; F41.9 Anxiety disorder, unspecified; F32.A Depression, unspecified; I95.1 Orthostatic hypotension; Z79.899 Other long term (current) drug therapy; Z79.82 Long term (current) use of aspirin; Z95.0 Presence of cardiac pacemaker; I25.2 Old myocardial infarction; Z90.710 Acquired absence of both cervix and uterus; Z98.890 Other specified postprocedural states
CPT/HCPCS: 36415; 51702; 80048; 80053; 81001; 85025; 85610; 85730; 86850; 86900; 86901; 94760; 96374; 96375; C1713; G0390; J1100; J1650; J2272; J2405; J2704; J3010; J7120